=== PATIENT | male | born 1970 | race Asian ===

== ENCOUNTER 2018-07-09 19:06 | Inpatient (IN) | payer MEDICAID ==
[~2018-07-09] VITALS: Ht 165.1 cm; Wt 76.0 kg
[~2018-07-09 19:06] MED LIST: HYDR-3498 PO; IBUP-1542 PO; ZOF8 PO
[2018-07-09] MEDS ORDERED: SOD CHLORIDE 0.9% 1,000 ML IV STA (19:37)
--- NOTE | 2018-07-09 20:02 | ERD ---
ER Documentation Chief Complaint Chief Complaint bib ra from home for sudden aloc while eating dinner, no trauma HPI 47-year-old man had an episode of difficulty breathing, became diaphoretic, and then syncopized while at the dinner table prior to eating. After he was revived he was confused diaphoretic and hypotensive and was transported here by EMS. He had no vomiting or diarrhea, no complaints of chest pain or shortness of breath. ROS All systems reviewed and are negative except as per history of present illness. Medications Home Meds Reported Medications Atorvastatin Calcium (Atorvastatin Calcium) 10 Mg Tablet, 10 MG PO QHS, #30 TAB 07/09/18 Amlodipine Besylate* (Norvasc*) 5 Mg Tablet, 5 MG PO DAILY, TAB 07/09/18 Losartan-Hydrochlorothiazide (Losartan-HCTZ) Unknown Strength Tab, PO DAILY, TAB 07/09/18 Discontinued Scripts Ondansetron Hcl* (Zofran* ODT) 8 mg -ODT Tab.disper, 8 MG PO Q6 PRN for NAUSEA AND/OR VOMITING, #8 TAB Prov:BARRY ORTIZ MD 10/25/15 Ibuprofen* (Motrin*) 600 Mg Tab, 600 MG PO Q6, #20 TAB Prov:BARRY ORTIZ MD 10/25/15 Hydrocodone Bit-Acetaminophen* (As[place]*) 5-325 Mg Tab, 1 TAB PO Q6 PRN for PAIN, #15 TAB Prov:BARRY ORTIZ MD 10/25/15 Allergies Allergies: Coded Allergies: No Known Allergy (Unverified , 07/09/18) PMhx/Soc Hypertension, visually impaired History of Surgery: Yes (BRAIN) Anesthesia Reaction: No Hx Neurological Disorder: No Hx Respiratory Disorders: No Hx Cardiac Disorders: No (HTN; CHOLESTEROL) Hx Psychiatric Problems: No Hx Miscellaneous Medical Probl: Yes (AUTISM) Hx Alcohol Use: No Hx Substance Use: No Hx Tobacco Use: No Smoking Status: Never smoker FmHx Family History: No diabetes Physical Exam Vitals Vital Signs Date Temp Pulse Resp B/P (MAP) Pulse Ox O2 O2 Flow FiO2 Time Delivery Rate 07/09/18 98.7 63 19 111/75 100 19:11 (87) Physical Exam GENERAL: Well-developed, well-nourished, well-hydrated, in no apparent distress, looks nontoxic in appearance HEENT: Moist mucous membranes, pink conjunctiva, no cervical spine tenderness or step-off deformities, no goiter, no jaundice or icterus, extraocular movements intact without pain. No submandibular induration, and no pharyngeal erythema NEURO: Alert and oriented 3, cranial nerves II through XII intact bilaterally, pupils equal round reactive to light, no focal deficits or facial asymmetry, sensation intact distally Strength 5/5 in upper and lower extremities bilaterally CARDIAC: Regular rate and rhythm, no murmurs rubs or gallops LUNGS: Clear bilaterally no wheezing crackles or stridor ABDOMEN: Soft nontender, no guarding, no rigidity, no rebound, no psoas sign no obturator sign. Normoactive bowel sounds SKIN: Warm and dry to touch, no abrasions, contusions, or hematomas, no lacerations, no ecchymosis, no target lesions, and without ulcers EXTREMITIES: No clubbing cyanosis or edema, calves are bilaterally symmetrical, no Homans sign, no popliteal cord sign. Distal pulses equal and bilateral PSYCH: Normal affect without agitation or irritability Result Diagram: 07/09/18191307/09/181913 Results 24 hrs Laboratory Tests Test 07/09/18 19:14 White Blood Count 14.4 10^3/ul Red Blood Count 5.25 10^6/ul Hemoglobin 15.9 g/dl Hematocrit 46.9 % Mean Corpuscular Volume 89.3 fl Mean Corpuscular Hemoglobin 30.3 pg Mean Corpuscular Hemoglobin Concent 33.9 g/dl Red Cell Distribution Width 11.9 % Platelet Count 318 10^3/UL Mean Platelet Volume 9.3 fl Immature Granulocytes % 0.600 % Neutrophils % 50.1 % Lymphocytes % 39.3 % Monocytes % 7.0 % Eosinophils % 2.5 % Basophils % 0.5 % Nucleated Red Blood Cells % 0.0 /100WBC Immature Granulocytes # 0.080 10^3/ul Neutrophils # 7.2 10^3/ul Lymphocytes # 5.6 10^3/ul Monocytes # 1.0 10^3/ul Eosinophils # 0.4 10^3/ul Basophils # 0.1 10^3/ul Nucleated Red Blood Cells # 0.0 10^3/ul Sodium Level 141 mmol/L Potassium Level 3.0 mmol/L Chloride Level 98 mmol/L Carbon Dioxide Level 29 mmol/L Anion Gap 14 Blood Urea Nitrogen 19 mg/dl Creatinine 0.94 mg/dl Est Glomerular Filtrat Rate mL/min > 60 mL/min Glucose Level 169 mg/dl Calcium Level 9.0 mg/dl Total Bilirubin 1.1 mg/dl Direct Bilirubin 0.00 mg/dl Indirect Bilirubin 1.1 mg/dl Aspartate Amino Transf (AST/SGOT) 21 IU/L Alanine Aminotransferase (ALT/SGPT) 32 IU/L Alkaline Phosphatase 61 IU/L Troponin I < 0.012 ng/ml Total Protein 7.3 g/dl Albumin 4.3 g/dl Globulin 3.00 g/dl Albumin/Globulin Ratio 1.43 Lipase 40 U/L Current Medications Medications Dose Sig/Jc Start Time Status Last (Trade) Ordered Route PRN Stop Time Admin Dose Reason Admin Sodium 1,000 ml @ Q1H STAT 07/09/18 DC 07/09/18 Chloride 1,000 mls/hr IV 19:37 07/09/18 19:57 20:36 Procedures/MDM IV line was established patient was placed on campus monitor rhythm strip revealed a sinus rhythm at about 70 bpm with upright P and T waves. Patient was afebrile EKG performed, read by me: Normal sinus rhythm at 70 bpm, normal axis, right ventricular conduction delay QRS duration 108 ms, no concerning ST elevations or depressions noted Chest X-ray 1V Interpreted by me: Soft Tissue: Linear foreign body in the right mid chest overlying the right lateral trachea Bones: No acute abnormalities Mediastinum/Cardiac Silhouette/Lungs: No acute abnormalities CT scan of the neck was performed, no acute ingested foreign body or airway foreign body noted. Please refer to radiologist dictation for full report. CBC and electrolytes were normal, liver function tests are normal, troponin negative, urinalysis positive for RBCs. Patient has no complaints of pain. I administered 1 L normal saline IV and Zofran 4 mg IV Patient admitted for continued medical management and syncope workup Departure Diagnosis: Primary Impression: Syncope Syncope type: unspecified Qualified Codes: R55 - Syncope and collapse Condition: SKYLAR Ahmadi MD Jul 09, 2018 20:02
--- NOTE | 2018-07-09 22:13 | HP ---
Date/Time of Note Date/Time of Note DATE: 07/09/18 TIME: 22:13 Assessment/Plan VTE Prophylaxis SCD applied (from Nsg): Yes Pharmacological prophylaxis: NA/contraindicated Pharm contraindication: low risk/ambulating Lines/Catheters IV Catheter Type (from Nrsg): Saline Lock Assessment/Plan Hospital Course This is a 47-year-old male being admitted to the telemetry floor for observation for: #1 syncope: Etiology unclear, neurocardiogenic versus cardiogenic versus vasovagal. Based on the history seems like a possible vasovagal/orthostatic event. Will check orthostatics, echocardiogram, carotid Dopplers monitor electrolytes we will replete potassium. Monitor on telemetry. Will consult cardiology/Neurology. EKG:Normal sinus rhythm at 70 bpm, normal axis, right ventricular conduction delay QRS duration 108 ms, no concerning ST elevations or depressions noted #2 hypertension: We will hold patient's home blood pressure medication at the current time, PRN hydralazine for systolic greater than 170 #3 hyperlipidemia: Check lipid panel, resume statin #4: metallic foreign body. Patient has a KNOWN foreign body on imaging studies. Family chose not to have it removed as they were told it was not necessary to in the past. Of note, this likely will prevent MRI #5 history of brain tumors: Unclear etiology of the brain tumors however patient apparently has had 5 brain surgeries in the past. #6 autism: Continue supportive care #7 leukocytosis: Likely reactive, no source of infection noted at the current time. Will obtain a urinalysis. #8 DVT GI prophylaxis: SCDs, no GI prophylaxis indicated The treatment strategy will be implemented as per the clinical course. Result Diagram: 07/09/18191307/09/181913 Results 24hrs Laboratory Tests Test 07/09/18 19:14 White Blood Count 14.4 H Red Blood Count 5.25 Hemoglobin 15.9 Hematocrit 46.9 Mean Corpuscular Volume 89.3 Mean Corpuscular Hemoglobin 30.3 Mean Corpuscular Hemoglobin Concent 33.9 Red Cell Distribution Width 11.9 Platelet Count 318 Mean Platelet Volume 9.3 # Immature Granulocytes % 0.600 H Neutrophils % 50.1 Lymphocytes % 39.3 Monocytes % 7.0 Eosinophils % 2.5 Basophils % 0.5 Nucleated Red Blood Cells % 0.0 Immature Granulocytes # 0.080 H Neutrophils # 7.2 Lymphocytes # 5.6 H Monocytes # 1.0 H Eosinophils # 0.4 Basophils # 0.1 Nucleated Red Blood Cells # 0.0 Sodium Level 141 Potassium Level 3.0 L Chloride Level 98 Carbon Dioxide Level 29 Anion Gap 14 H Blood Urea Nitrogen 19 Creatinine 0.94 Est Glomerular Filtrat Rate mL/min > 60 Glucose Level 169 Calcium Level 9.0 Total Bilirubin 1.1 Direct Bilirubin 0.00 Indirect Bilirubin 1.1 Aspartate Amino Transf (AST/SGOT) 21 Alanine Aminotransferase (ALT/SGPT) 32 Alkaline Phosphatase 61 Troponin I < 0.012 Total Protein 7.3 Albumin 4.3 Globulin 3.00 Albumin/Globulin Ratio 1.43 Lipase 40 HPI/ROS Admit Date/Time Admit Date/Time Hx of Present Illness Chief complaint: Syncopal episode while sitting This is a 47-year-old autistic male who had a syncopal episode at home. Family member at the bedside provided the history. She states that the patient was sitting at dinner and all of a sudden he started sweating and turned pale and his face turned blank and in a slightly slumped forward. After he was revived he became confused and he was diaphoretic and he was hypotensive and was transported via EMS to [facility]. Patient denied any nausea vomiting or diarrhea there is no chest pain or shortness of Allergies: NKDA Medications: See AMANDA PINEDA Subjective hx not possible: other (Limited secondary to patient's clinical, mental status) PMH/Family/Social Past Medical History Hypertension, hyperlipidemia, history of brain tumor Coded Allergies: No Known Allergy (Unverified , 07/09/18) Past Surgical History Multiple brain surgeries Family History Significant Family History: no pertinent family hx Social History Alcohol Use: none Smoking Status: Never smoker Drug Use: none Exam/Review of Systems Vital Signs Vitals Vital Signs Date Temp Pulse Resp B/P (MAP) Pulse Ox O2 O2 Flow FiO2 Time Delivery Rate 07/09/18 98.7 63 19 111/75 100 19:11 (87) Exam Exam General: Patient is currently lying in bed he does not appear to be in acute distress, patient does have a history of autism he is limited in providing h istory HEENT: Atraumatic, normocephalic. The pupils are equal, round and reactive. Extraocular motor are intact Neck: Supple with full range of motion. No rigidity or meningismus Chest: Nontender Lungs: Clear to auscultation bilaterally no crackles rales or wheezing Heart: Normal S1-S2, Regular rhythm and rate. No murmur, S3, or S4 Abdomen: Soft , nontender, nondistended , bowel sounds are present. No guarding no rebound tenderness , No masses or organomegaly. No costovertebral temporal angle mass Extremities: Normal to inspection, no edema no cyanosis Neurologic: Awake and alert, neuro test limited secondary to patient history of autism Additional Comments EKG:Normal sinus rhythm at 70 bpm, normal axis, right ventricular conduction delay QRS duration 108 ms, no concerning ST elevations or depressions noted PROCEDURE: CT soft tissue neck without contrast CLINICAL INDICATION: Possible foreign body TECHNIQUE: The study was performed utilizing a multidetector CT scanner. Direct thin section helically acquired axial sections were obtained through the neck in the axial plane. Coronal and sagittal reformations were obtained. The images were reviewed on a PACS workstation. The total CTDIvol is 10.5 mGy and the DLP is 284 mGy-cm. 3-D reconstructions were not performed on the radiologist's workstation and evaluated for fractures. DICOM images are available. One or more of the following dose reduction techniques were utilized: 1.) Automated exposure control 2.) Adjustment of the mA +/- kV according to patient's size 3.) Use of iterative reconstruction technique. COMPARISON: Cervical spine CT dated 07/15/2015 FINDINGS: The nasopharynx, oropharynx, hypopharynx, and larynx are all normal in appearance. The thyroid gland is normal in size with no focal mass lesions seen. The submandibular and parotid glands are unremarkable and normal in appearance. No pathologically enlarged lymph nodes are detected. Overall, fat planes in the neck are well maintained. There is a metallic needle shaped foreign body in the subcutaneous soft tissues in the sternal notch just superomedial to the medial and of the right clavicle. This was present on the prior examination. No other foreign bodies are evident. Arterial and venous structures in the neck appear grossly unremarkable. No osteolytic or blastic lesion is evident. IMPRESSION: 1. Stable metallic foreign body at the sternal notch unchanged since 07/15/2015. 2. No other evidence of foreign body in the vicinity of the trachea or esophagus. 3. Otherwise unremarkable unenhanced CT scan of the neck. RPTAT:AAJJ Samina Chung, Physician Date Time Electronically viewed and signed by Samina Chung Physician on 07/09/2018 22:33 GW/ CC: SKYLAR EID MD [id number] PROCEDURE: XR Chest. CLINICAL INDICATION: foreign body TECHNIQUE: Single frontal view of the chest was obtained COMPARISON: None FINDINGS: See impression IMPRESSION: 2 cm linear hyperdense object is seen projecting just to the right of midline at the C1-C2 vertebral body level. It is unclear whether this is within the trachea or esophagus. Recommend obtaining a true lateral view chest radiograph for localization. Lungs are otherwise clear. Heart and mediastinum are within normal limits. ... No acute musculoskeletal abnormalities. RPTAT: AA Radha Senior, Physician Date Time Electronically viewed and signed by Radha Senior Physician on 07/09/2018 21:21 RB/ CC: SKYLAR EID MD [id number] JOHN ROQUE Jul 09, 2018 22:13
[2018-07-09] MEDS ORDERED: NACL 0.9% 3 ML SYG IV SCH (22:30)
[2018-07-09] MEDS ORDERED: ONDANSETRON 4 MG INJ IV PRN (22:30)
[2018-07-09] MEDS ORDERED: morphine 2 MG INJ IV PRN (22:30)
[2018-07-09] MEDS: SOD CHLORIDE 0.9% 1,000 ML IV SCH (22:35)
[2018-07-09 23:10] VITALS: BP 127/79; PULSE 91; RESP 20
[2018-07-09 23:25] VITALS: Ht 165.1 cm; Wt 76.0 kg
[2018-07-09] MEDS ORDERED: ATOR10TA65 PO (23:25)
[2018-07-09] MEDS ORDERED: LOSA1TAB22 PO (23:25)
[2018-07-09] MEDS ORDERED: AMLO5TAB4 PO (23:25)
[2018-07-10] VITALS (12 sets, daily range): BP systolic 116–139; BP diastolic 81–100; PULSE 85–104; RESP 16–19
[2018-07-10] MEDS ORDERED: hydrALAzine 20 MG INJ IV PRN
[2018-07-10] MEDS ORDERED: POTASSIUM CHLORIDE (SR) 20 MEQ TAB PO STA (00:24)
[2018-07-10] MEDS ORDERED: MAGNESIUM OXIDE 400 MG TAB PO ONE (00:30)
[2018-07-10] MEDS: PANTOPRAZOLE 40 MG INJ IV SCH (05:33)
[2018-07-10] MEDS: SOD CHLORIDE 0.9% 1,000 ML IV SCH (09:22)
--- NOTE | 2018-07-10 10:47 | CONS ---
Assessment/Plan Assessment/Plan Hospital Course 47 M c/ remote brain surgery NOS, and autism...who presents for evaluation following transient LOC. The clinical picture could be consistent w/ syncope. Seizure is less likely. Stroke is less likely.. Orthostatics are negative MRI brain is contraindicated due to the presence of a metallic foreign body.. P: Head CT for further characterization EEG to evaluate for epileptiform activity. Await UA; add UDS Other medical workup and management per primary Will follow clinically Consultation Date/Type/Reason Admit Date/Time Type of Consult Neurology Reason for Consultation LOC Requesting Provider: JOHN ROQUE Date/Time of Note DATE: 07/10/18 TIME: 10:40 Hx of Present Illness Patient is himself unable to contribute a Hx 2/2 reported autism.. It is elsewhere noted: This is a 47-year-old autistic male who had a syncopal episode at home. Family member at the bedside provided the history. She states that the patient was sitting at dinner and all of a sudden he started sweating and turned pale and his face turned blank and in a slightly slumped forward. After he was revived he became confused and he was diaphoretic and he was hypotensive and was transported via EMS to [facility]. Patient denied any nausea vomiting or diarrhea there is no chest pain or shortness of Allergies: NKDA limited by encephalopathy Exam/Review of Systems Exam Vitals Vital Signs Date Temp Pulse Resp B/P (MAP) Pulse Ox O2 O2 Flow FiO2 Time Delivery Rate 07/10/18 92 08:03 07/10/18 98.7 16 138/86 99 Room Air 07:31 (103) Intake and Output 07/09/18 07/09/18 07/10/18 1515:00 23:00 07:00 IntakeIntake Total 300 ml OutputOutput Total 200 ml BalanceBalance 100 ml Exam PE: Gen Appearance: No Apparent Distress HEENT: Normocephalic Cardiovascular: Regular rate Abdomen: Soft Extremities: Dry NE: The patient was alert able to say his name. Language was fluent. Fund of knowledge was difficult to assess. He was blind.. Funduscopic examination was limited. Extra-ocular movements were full. Ptosis was absent. There was no nystagmus. Facial sensation was normal. Face was grossly symmetric with normal strength. Hearing was intact. Palate movements were normal. Neck strength was normal. There was normal tongue bulk and speed of movement. Tone was normal. Muscle bulk was normal. I did not see fasciculations. Arms and legs were grossly symmetric.. Vibration sensation was normal. Temperature and pinprick sensation was normal. Rapid alternating movements were normal. There was no dysmetria. There was no intention tremor. Gait was deferred due to bedrest. Arm and leg reflexes were symmetric. Lucero's sign was absent. Plantar responses were flexor. Results Result Diagram: 07/10/18 0725 07/10/18 0725 Results 24hrs Laboratory Tests Test 07/09/18 19:14 07/10/18 07:25 White Blood Count 14.4 H 9.7 # Red Blood Count 5.25 5.01 Hemoglobin 15.9 15.2 Hematocrit 46.9 46.0 Mean Corpuscular Volume 89.3 91.8 Mean Corpuscular Hemoglobin 30.3 30.3 Mean Corpuscular Hemoglobin Concent 33.9 33.0 Red Cell Distribution Width 11.9 12.0 Platelet Count 318 308 Mean Platelet Volume 9.3 # 9.6 Immature Granulocytes % 0.600 H 0.300 Neutrophils % 50.1 60.8 Lymphocytes % 39.3 29.9 Monocytes % 7.0 7.2 Eosinophils % 2.5 1.5 Basophils % 0.5 0.3 Nucleated Red Blood Cells % 0.0 0.0 Immature Granulocytes # 0.080 H 0.030 Neutrophils # 7.2 5.9 Lymphocytes # 5.6 H 2.9 Monocytes # 1.0 H 0.7 Eosinophils # 0.4 0.2 Basophils # 0.1 0.0 Nucleated Red Blood Cells # 0.0 0.0 Sodium Level 141 147 H Potassium Level 3.0 L 3.7 Chloride Level 98 106 Carbon Dioxide Level 29 29 Anion Gap 14 H 12 Blood Urea Nitrogen 19 15 Creatinine 0.94 0.78 Est Glomerular Filtrat Rate mL/min > 60 > 60 Glucose Level 169 90 # Calcium Level 9.0 9.3 Total Bilirubin 1.1 1.0 Direct Bilirubin 0.00 0.00 Indirect Bilirubin 1.1 1.0 Aspartate Amino Transf (AST/SGOT) 21 26 Alanine Aminotransferase (ALT/SGPT) 32 24 Alkaline Phosphatase 61 55 Troponin I < 0.012 Total Protein 7.3 7.5 Albumin 4.3 4.3 Globulin 3.00 3.20 Albumin/Globulin Ratio 1.43 1.34 Lipase 40 Hemoglobin A1c 5.6 Magnesium Level 2.2 Triglycerides Level 135 Cholesterol Level 132 LDL Cholesterol, Calculated 75 HDL Cholesterol 30 Cholesterol/HDL Ratio 4.4 Thyroid Stimulating Hormone (TSH) 2.670 Medications Medication Current Medications Sodium Chloride 1,000 ml @ 100 mls/hr Q10H IV Last administered on 07/10/18at 09:22; Admin Dose 100 MLS/HR; Start 07/09/18 at 22:10; Stop 07/10/18 at 22:09 IV Flush (NS 3 ml) 3 ml PER PROTOCOL IV ; Start 07/09/18 at 22:30 Ondansetron HCl (Zofran Inj) 4 mg Q6H PRN IV NAUSEA/VOMITING; Start 07/09/18 at 22:30 Morphine Sulfate (morphine) 2 mg Q4H PRN IV .PAIN 7-10; Start 07/09/18 at 22:30 Pantoprazole (Protonix Iv) 40 mg DAILY@06 IV Last administered on 07/10/18at 05:33; Admin Dose 40 MG; Start 07/10/18 at 06:00 Hydralazine HCl (Apresoline) 10 mg Q4H PRN IV ELEVATED BLOOD PRESSURE; Start 07/10/18 at 00:00 Amlodipine Besylate (Norvasc) 5 mg DAILY PO ; Start 07/10/18 at 10:00 Atorvastatin Calcium (Lipitor) 10 mg QHS PO ; Start 07/10/18 at 21:00 Past Medical History reviewed Home Meds Reported Medications Atorvastatin Calcium (Atorvastatin Calcium) 10 Mg Tablet, 10 MG PO QHS, #30 TAB 07/09/18 Amlodipine Besylate* (Norvasc*) 5 Mg Tablet, 5 MG PO DAILY, TAB 07/09/18 Losartan-Hydrochlorothiazide (Losartan-HCTZ) Unknown Strength Tab, PO DAILY, TAB 07/09/18 Discontinued Scripts Ondansetron Hcl* (Zofran* ODT) 8 mg -ODT Tab.disper, 8 MG PO Q6 PRN for NAUSEA AND/OR VOMITING, #8 TAB Prov:BARRY ORTIZ MD 10/25/15 Ibuprofen* (Motrin*) 600 Mg Tab, 600 MG PO Q6, #20 TAB Prov:BARRY ORTIZ MD 10/25/15 Hydrocodone Bit-Acetaminophen* (Ponce*) 5-325 Mg Tab, 1 TAB PO Q6 PRN for PAIN, #15 TAB Prov:BARRY ORTIZ MD 10/25/15 Medications Current Medications Sodium Chloride 1,000 ml @ 100 mls/hr Q10H IV Last administered on 07/10/18at 09:22; Admin Dose 100 MLS/HR; Start 07/09/18 at 22:10; Stop 07/10/18 at 22:09 IV Flush (NS 3 ml) 3 ml PER PROTOCOL IV ; Start 07/09/18 at 22:30 Ondansetron HCl (Zofran Inj) 4 mg Q6H PRN IV NAUSEA/VOMITING; Start 07/09/18 at 22:30 Morphine Sulfate (morphine) 2 mg Q4H PRN IV .PAIN 7-10; Start 07/09/18 at 22:30 Pantoprazole (Protonix Iv) 40 mg DAILY@06 IV Last administered on 07/10/18at 05:33; Admin Dose 40 MG; Start 07/10/18 at 06:00 Hydralazine HCl (Apresoline) 10 mg Q4H PRN IV ELEVATED BLOOD PRESSURE; Start 07/10/18 at 00:00 Amlodipine Besylate (Norvasc) 5 mg DAILY PO ; Start 07/10/18 at 10:00 Atorvastatin Calcium (Lipitor) 10 mg QHS PO ; Start 07/10/18 at 21:00 Allergies: Coded Allergies: No Known Allergy (Unverified , 07/09/18) Past Surgical History reviewed Past Surgical Hx: other (brain surgery 30 years ago) Social History Alcohol Use: none Smoking Status: Never smoker Drug Use: none DAISY ALBERTS Jul 10, 2018 10:47
[2018-07-10] MEDS: AMLODIPINE 5 MG TAB PO SCH (11:41)
--- NOTE | 2018-07-10 12:38 | RADRPT ---
Echocardiogram Report Patient Name: MARIA D PARRAatient ID: [id number] : 1970 (47y 7m)Study Date: 07/10/2018 8:23:03 AM Gender: MAccession #: [id number] Tech: SIHRA Banks RDCS Location: [facility] Ref.Physician: JOHN ROQUE Height(Cm): BSA: Weight(Kg): Quality: AdequateAccount #: Procedures: Echocardiographic Report: Transthoracic echocardiogram with complete 2D, M-Mode, and doppler examination. Indications: Syncope. Measurements: 2D/M Mode Doppler Measurement Value Normal Range Measurement Value Normal Range LVIDd 2D 4.5 [ 4.2 - 5.8 ] cm AV Peak Kartik 1.2 [ 100.0 - 170.0 ] cm/se c LVIDs 2D 2.9 [ 2.5 - 4.0 ] cm AV Peak PG 6.0 [ 2.0 - 9.0 ] mmHg LVPWd 2D 0.9 [ 0.6 - 1.0 ] cm LVOT Peak Kartik 0.9 [ 70.0 - 110.0 ] cm/sec IVSd 2D 0.6 [ 0.6 - 1.0 ] cm LVOT Peak PG 3.0 [ 2.0 - 6.0 ] mmHg AoR Diam 2D 2.3 [ 2.6 - 3.4 ] cm MV E Peak Kartik 1.0 [ 60.0 - 130.0 ] cm/sec EDV 2D 92.4 [ 62.0 - 150.0 ] ml MV A Peak Kartik 0.3 [ 100.0 - 120.0 ] cm/se c ESV 2D 31.9 [ 21.0 - 61.0 ] ml MV E/A 3.0 [ 0.8 - 1.5 ] ratio EF 2D 65.5 [ 52.0 - 72.0 ] percent MV PHT 61.0 [ 20.0 - 100.0 ] msec LA Dimen 2D 2.6 [ 3.0 - 4.0 ] cm MV Decel Time 208 [ 104 - 258 ] msec MV Decel Erath 5 Lat E` Kartik 0.1 [ 10.0 - 15.0 ] cm/sec Lateral E/E` 9.5 [ 1.0 - 2.0 ] ratio Med E` Kartik 0.1 cm/sec MV E/A 3.0 [ 0.8 - 1.5 ] ratio MVA PHT 3.6 [ 2.0 - 4.0 ] cm2 Findings: Left Ventricle: Normal left ventricular systolic function. Normal left ventricular cavity size. Normal left ventricular wall thickness. Ejection fraction is visually estimated at 60-65 %. Tissue Doppler/Mitral Doppler indices are within normal limits. Right Ventricle: Normal right ventricular size. Normal right ventricular systolic function. Left Atrium: The left atrium is normal in size. Right Atrium: The right atrium is normal in size. Atrial Septum: Normal atrial septum. Ventricular septum: Normal/intact ventricular septum. Mitral Valve: Normal appearance of the mitral valve. Normal appearance and function of the mitral valve with trace physiologic regurgitation. Aortic Valve: Normal appearance of the aortic valve. No significant aortic stenosis or insufficiency. Tricuspid Valve: Normal appearance of the tricuspid valve. Unable to obtain RVSP due to minimal presence of tricuspid regurgitation. No evidence of tricuspid regurgitation. Pulmonic Valve: Normal pulmonic valve appearance. No evidence of pulmonic regurgitation. Pericardium: Normal pericardium with no significant pericardial effusion. Aorta: Normal aortic root. IVC: The IVC is not well visualized. Conclusions: Normal left ventricular systolic function. Normal left ventricular cavity size. Normal left ventricular wall thickness. Ejection fraction is visually estimated at 60-65 %. Tissue Doppler/Mitral Doppler indices are within normal limits. No significant valvular stenosis or regurgitation seen. Unable to obtain RVSP due to minimal presence of tricuspid regurgitation. The IVC is not well visualized. Electronically Signed By: Akin Sky 2018-07-10 12:36:59 PDT
--- NOTE | 2018-07-10 16:17 | PN ---
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 # syncope: - Was sitting at dinner table before eating, developed sweating and turned pale and his face turned blank and in a slightly slumped forward. Confused and diaphoretic afterwards - CT head interesting, consistent with congenital disability and old stroke but no acute changes. - Neuro exam nonfocal. Would not pursue MRI; and it is contraindicated anyway with embedded needle in neck. - Will get EEG to rule out seizure. Appreciate Dr. Canales's help. - Continue 24 hours telemetry monitoring. # hypertension: - Cont home lisinopril, HCTZ, amlodipine. # hyperlipidemia: - resume statin #Autism - This is according to mother; possible that patient instead has a congenital neurologic condition. # leukocytosis: Likely reactive, no source of infection noted at the current time. Will obtain a urinalysis. # DVT GI prophylaxis: SCDs, no GI prophylaxis indicated Result Diagram: 07/10/18 0725 07/10/18 0725 Subjective 24 Hr Interval Summary Free Text/Dictation No acute overnight events. Patient currently feeling well, although poor appetite. Patient feeling well. Mother at bedside helped translate; patient speaks Tajik. Exam/Review of Systems Exam Vitals Vital Signs Date Temp Pulse Resp B/P (MAP) Pulse Ox O2 O2 Flow FiO2 Time Delivery Rate 07/10/18 98.7 96 16 134/85 100 Room Air 15:31 (101) Intake and Output 07/09/18 07/09/18 07/10/18 1515:00 23:00 07:00 IntakeIntake Total 300 ml OutputOutput Total 200 ml BalanceBalance 100 ml Exam General: Patient is awake, alert, lying in bed answering questions appropriately. Eyes: Nonreactive pupils. Patient is blind. HEENT: Atraumatic, normocephalic. Extraocular motor are intact Neck: Supple with full range of motion. No rigidity or meningismus Chest: Nontender Lungs: Clear to auscultation bilaterally no crackles rales or wheezing Heart: Normal S1-S2, Regular rhythm and rate. No murmur, S3, or S4 Abdomen: Soft , nontender, nondistended , bowel sounds are present. No guarding Extremities: Normal to inspection, no edema no cyanosis NEURO CN: Blind in both eyes. Hearing equal to finger rub bilaterally. No facial droop. Sensation equal bilaterally. No hoarseness, tongue midline, shoulder shrug equal and strong bilaterally. Strength: 5/5 strength both upper and lower extremities in all muscle groups Sensation: Intact to light touch bilaterally throughout. Gait: Able to stand and walk independently, hesitant shuffling gait due to blindness. Results Results 24hrs Laboratory Tests Test 07/09/18 19:14 07/10/18 07:25 07/10/18 10:58 07/10/18 11:15 White Blood Count 14.4 H 9.7 # Red Blood Count 5.25 5.01 Hemoglobin 15.9 15.2 Hematocrit 46.9 46.0 Mean Corpuscular Volume 89.3 91.8 Mean Corpuscular 30.3 30.3 Hemoglobin Mean Corpuscular 33.9 33.0 Hemoglobin Concent Red Cell Distribution 11.9 12.0 Width Platelet Count 318 308 Mean Platelet Volume 9.3 # 9.6 Immature Granulocytes % 0.600 H 0.300 Neutrophils % 50.1 60.8 Lymphocytes % 39.3 29.9 Monocytes % 7.0 7.2 Eosinophils % 2.5 1.5 Basophils % 0.5 0.3 Nucleated Red Blood 0.0 0.0 Cells % Immature Granulocytes # 0.080 H 0.030 Neutrophils # 7.2 5.9 Lymphocytes # 5.6 H 2.9 Monocytes # 1.0 H 0.7 Eosinophils # 0.4 0.2 Basophils # 0.1 0.0 Nucleated Red Blood 0.0 0.0 Cells # Sodium Level 141 147 H Potassium Level 3.0 L 3.7 Chloride Level 98 106 Carbon Dioxide Level 29 29 Anion Gap 14 H 12 Blood Urea Nitrogen 19 15 Creatinine 0.94 0.78 Est Glomerular Filtrat > 60 > 60 Rate mL/min Glucose Level 169 90 # Calcium Level 9.0 9.3 Total Bilirubin 1.1 1.0 Direct Bilirubin 0.00 0.00 Indirect Bilirubin 1.1 1.0 Aspartate Amino 21 26 Transf (AST/SGOT) Alanine 32 24 Aminotransferase (ALT/SG PT) Alkaline Phosphatase 61 55 Troponin I < 0.012 < 0.012 Total Protein 7.3 7.5 Albumin 4.3 4.3 Globulin 3.00 3.20 Albumin/Globulin Ratio 1.43 1.34 Lipase 40 Hemoglobin A1c 5.6 Magnesium Level 2.2 Triglycerides Level 135 Cholesterol Level 132 LDL Cholesterol, 75 Calculated HDL Cholesterol 30 Cholesterol/HDL Ratio 4.4 Thyroid Stimulating 2.670 Hormone (TSH) Creatine Kinase 48 Creatine Kinase Index 0.5 Creatinine Kinase MB < 0.22 (Mass) Urine Color YELLOW Urine Clarity CLEAR Urine pH 7.0 Urine Specific [place] 1.016 Urine Ketones NEGATIVE Urine Nitrite NEGATIVE Urine Bilirubin NEGATIVE Urine Urobilinogen NEGATIVE Urine Leukocyte Esterase NEGATIVE Urine Hemoglobin NEGATIVE Urine Glucose NEGATIVE Urine Total Protein NEGATIVE Urine Opiates Screen Negative Urine Barbiturates Negative Urine Amphetamines Negative Screen Urine Benzodiazepines Negative Screen Urine Cocaine Screen Negative Urine Cannabinoids Negative Medications Medication Current Medications Sodium Chloride 1,000 ml @ 100 mls/hr Q10H IV Last administered on 07/10/18at 09:22; Admin Dose 100 MLS/HR; Start 07/09/18 at 22:10; Stop 07/10/18 at 22:09 IV Flush (NS 3 ml) 3 ml PER PROTOCOL IV ; Start 07/09/18 at 22:30 Ondansetron HCl (Zofran Inj) 4 mg Q6H PRN IV NAUSEA/VOMITING; Start 07/09/18 at 22:30 Morphine Sulfate (morphine) 2 mg Q4H PRN IV .PAIN 7-10; Start 07/09/18 at 22:30 Pantoprazole (Protonix Iv) 40 mg DAILY@06 IV Last administered on 07/10/18at 0 5:33; Admin Dose 40 MG; Start 07/10/18 at 06:00 Hydralazine HCl (Apresoline) 10 mg Q4H PRN IV ELEVATED BLOOD PRESSURE; Start 07/10/18 at 00:00 Amlodipine Besylate (Norvasc) 5 mg DAILY PO Last administered on 07/10/18at 11:41; Admin Dose 5 MG; Start 07/10/18 at 10:00 Atorvastatin Calcium (Lipitor) 10 mg QHS PO ; Start 07/10/18 at 21:00 ISACC KRISHNAMURTHY MD Jul 10, 2018 16:13
--- NOTE | 2018-07-10 18:36 | CONS ---
Assessment/Plan Assessment/Plan Hospital Course (Demo Recall) Syncope: By history likely vasovagal episode. Probably contribution from HCTZ use/dehydration. Echo with normal EF and no arrhythmias on tele HTN -would d/c HCTZ indefinitely -continue amlodipine and losartan -ok for d.c from my perspective Consultation Date/Type/Reason Admit Date/Time Date of Consultation: Jul 10, 2018 Type of Consult Cardiology Reason for Consultation Syncope Requesting Provider: JOHN ROQUE Date/Time of Note DATE: 07/10/18 TIME: 18:28 Hx of Present Illness 47 yo M with developmental delay, HTN, blindness, who presented with syncope. Per family recollection, he was eating when he started to become less responsive and pale. He briefly lost consciousness and when he recovered he was diaphoretic. He was hypotensive but unclear how low. On admission his K was 3.0. He is on HCTZ. No arrhythmias on tele. No complaints at this time. No prior syncope or cardiac disease. limited, obtained from family Past Medical History per hPI Home Meds Reported Medications Atorvastatin Calcium (Atorvastatin Calcium) 10 Mg Tablet, 10 MG PO QHS, #30 TAB 07/09/18 Amlodipine Besylate* (Norvasc*) 5 Mg Tablet, 5 MG PO DAILY, TAB 07/09/18 Losartan-Hydrochlorothiazide (Losartan-HCTZ) Unknown Strength Tab, PO DAILY, TAB 07/09/18 Discontinued Scripts Ondansetron Hcl* (Zofran* ODT) 8 mg -ODT Tab.disper, 8 MG PO Q6 PRN for NAUSEA AND/OR VOMITING, #8 TAB Prov:BARRY ORTIZ MD 10/25/15 Ibuprofen* (Motrin*) 600 Mg Tab, 600 MG PO Q6, #20 TAB Prov:BARRY ORTIZ MD 10/25/15 Hydrocodone Bit-Acetaminophen* ([place]*) 5-325 Mg Tab, 1 TAB PO Q6 PRN for PAIN, #15 TAB Prov:BARRY ORTIZ MD 10/25/15 Medications Current Medications IV Flush (NS 3 ml) 3 ml PER PROTOCOL IV ; Start 07/09/18 at 22:30 Ondansetron HCl (Zofran Inj) 4 mg Q6H PRN IV NAUSEA/VOMITING; Start 07/09/18 at 22:30 Morphine Sulfate (morphine) 2 mg Q4H PRN IV .PAIN 7-10; Start 07/09/18 at 22:30 Pantoprazole (Protonix Iv) 40 mg DAILY@06 IV Last administered on 07/10/18at 05:33; Admin Dose 40 MG; Start 07/10/18 at 06:00 Hydralazine HCl (Apresoline) 10 mg Q4H PRN IV ELEVATED BLOOD PRESSURE; Start 07/10/18 at 00:00 Amlodipine Besylate (Norvasc) 5 mg DAILY PO Last administered on 07/10/18at 11:41; Admin Dose 5 MG; Start 07/10/18 at 10:00 Atorvastatin Calcium (Lipitor) 10 mg QHS PO ; Start 07/10/18 at 21:00 Losartan Potassium (Cozaar) 25 mg DAILY PO ; Start 07/11/18 at 09:00 Hydrochlorothiazide (Hydrochlorothiazide) 25 mg DAILY PO ; Start 07/11/18 at 09:00 Allergies: Coded Allergies: No Known Allergy (Unverified , 07/09/18) Past Surgical History Past Surgical Hx: other (brain surgery 30 years ago) Social History Alcohol Use: none Smoking Status: Never smoker Drug Use: none Exam/Review of Systems Vital Signs Vitals Vital Signs Date Temp Pulse Resp B/P (MAP) Pulse Ox O2 O2 Flow FiO2 Time Delivery Rate 07/10/18 94 16:06 07/10/18 98.7 16 134/85 100 Room Air 15:31 (101) Intake and Output 07/09/18 07/09/18 07/10/18 1414:59 22:59 06:59 IntakeIntake Total 300 ml OutputOutput Total 200 ml BalanceBalance 100 ml Exam Constitutional: alert Psych: no complaints, nl mood/affect Head: normocephalic, atraumatic Neck: supple; No jvd Respiratory: clear to auscultation; No crackles/rales Cardiovascular: regular rate and rhythm; No edema Gastrointestinal: soft, non-tender; No distended Neurological: nl mental status, nl speech Labs Result Diagram: 07/10/18 0725 07/10/18 0725 Results 24hrs Laboratory Tests Test 07/09/18 19:14 07/10/18 07:25 07/10/18 10:58 4/6/19 11:15 White Blood Count 14.4 H 9.7 # Red Blood Count 5.25 5.01 Hemoglobin 15.9 15.2 Hematocrit 46.9 46.0 Mean Corpuscular Volume 89.3 91.8 Mean Corpuscular 30.3 30.3 Hemoglobin Mean Corpuscular 33.9 33.0 Hemoglobin Concent Red Cell Distribution 11.9 12.0 Width Platelet Count 318 308 Mean Platelet Volume 9.3 # 9.6 Immature Granulocytes % 0.600 H 0.300 Neutrophils % 50.1 60.8 Lymphocytes % 39.3 29.9 Monocytes % 7.0 7.2 Eosinophils % 2.5 1.5 Basophils % 0.5 0.3 Nucleated Red Blood 0.0 0.0 Cells % Immature Granulocytes # 0.080 H 0.030 Neutrophils # 7.2 5.9 Lymphocytes # 5.6 H 2.9 Monocytes # 1.0 H 0.7 Eosinophils # 0.4 0.2 Basophils # 0.1 0.0 Nucleated Red Blood 0.0 0.0 Cells # Sodium Level 141 147 H Potassium Level 3.0 L 3.7 Chloride Level 98 106 Carbon Dioxide Level 29 29 Anion Gap 14 H 12 Blood Urea Nitrogen 19 15 Creatinine 0.94 0.78 Est Glomerular Filtrat > 60 > 60 Rate mL/min Glucose Level 169 90 # Calcium Level 9.0 9.3 Total Bilirubin 1.1 1.0 Direct Bilirubin 0.00 0.00 Indirect Bilirubin 1.1 1.0 Aspartate Amino 21 26 Transf (AST/SGOT) Alanine 32 24 Aminotransferase (ALT/SG PT) Alkaline Phosphatase 61 55 Troponin I < 0.012 < 0.012 Total Protein 7.3 7.5 Albumin 4.3 4.3 Globulin 3.00 3.20 Albumin/Globulin Ratio 1.43 1.34 Lipase 40 Hemoglobin A1c 5.6 Magnesium Level 2.2 Triglycerides Level 135 Cholesterol Level 132 LDL Cholesterol, 75 Calculated HDL Cholesterol 30 Cholesterol/HDL Ratio 4.4 Thyroid Stimulating 2.670 Hormone (TSH) Creatine Kinase 48 Creatine Kinase Index 0.5 Creatinine Kinase MB < 0.22 (Mass) Urine Color YELLOW Urine Clarity CLEAR Urine pH 7.0 Urine Specific [place] 1.016 Urine Ketones NEGATIVE Urine Nitrite NEGATIVE Urine Bilirubin NEGATIVE Urine Urobilinogen NEGATIVE Urine Leukocyte Esterase NEGATIVE Urine Hemoglobin NEGATIVE Urine Glucose NEGATIVE Urine Total Protein NEGATIVE Urine Opiates Screen Negative Urine Barbiturates Negative Urine Amphetamines Negative Screen Urine Benzodiazepines Negative Screen Urine Cocaine Screen Negative Urine Cannabinoids Negative Test 07/10/18 16:50 Creatine Kinase 55 Creatine Kinase Index 0.4 Creatinine Kinase MB < 0.22 (Mass) Troponin I < 0.012 Medications Medications Current Medications IV Flush (NS 3 ml) 3 ml PER PROTOCOL IV ; Start 07/09/18 at 22:30 Ondansetron HCl (Zofran Inj) 4 mg Q6H PRN IV NAUSEA/VOMITING; Start 07/09/18 at 22:30 Morphine Sulfate (morphine) 2 mg Q4H PRN IV .PAIN 7-10; Start 07/09/18 at 22:30 Pantoprazole (Protonix Iv) 40 mg DAILY@06 IV Last administered on 07/10/18at 05:33; Admin Dose 40 MG; Start 07/10/18 at 06:00 Hydralazine HCl (Apresoline) 10 mg Q4H PRN IV ELEVATED BLOOD PRESSURE; Start 07/10/18 at 00:00 Amlodipine Besylate (Norvasc) 5 mg DAILY PO Last administered on 07/10/18at 11:41; Admin Dose 5 MG; Start 07/10/18 at 10:00 Atorvastatin Calcium (Lipitor) 10 mg QHS PO ; Start 07/10/18 at 21:00 Losartan Potassium (Cozaar) 25 mg DAILY PO ; Start 07/11/18 at 09:00 Hydrochlorothiazide (Hydrochlorothiazide) 25 mg DAILY PO ; Start 07/11/18 at 09:00 DEVIN PASCAL Jul 10, 2018 18:36
[2018-07-10] MEDS ORDERED: ATORVASTATIN 10 MG TAB PO SCH (21:00)
[2018-07-11] VITALS: BP 121/78; PULSE 89; PULSE 93; RESP 20
[2018-07-11 04:00] VITALS: BP 127/81; PULSE 80; PULSE 81; RESP 18
[2018-07-11] MEDS: PANTOPRAZOLE 40 MG INJ IV SCH (06:11)
[2018-07-11 07:31] VITALS: BP 145/96; PULSE 83; RESP 18
[2018-07-11 08:00] VITALS: PULSE 86
[2018-07-11] MEDS: AMLODIPINE 5 MG TAB PO SCH (08:44)
--- NOTE | 2018-07-11 08:48 | EEG ---
EEG NOTE Report Details DATE OF TEST: 07/10/18 HISTORY: The patient is a 47-year-old M who presents with transient LOC. This EEG is requested to evaluate for an epileptic disorder. SEDATION: None. CONDITIONS OF RECORDING: This EEG was recorded digitally on the [email or web address] machine, using the International 10-20 System of electrodes plus anterior temporals and Nz. STATES SAMPLED: Wakefulness and drowsiness. FINDINGS: During wakefulness, there is a 8.5 Hz posterior dominant rhythm, which attenuates normally with eye opening. There is a normal [id number] frequency-amplitude gradient. The remainder of the awake background is normal. Photic stimulation does not elicit any definite driving responses or epileptifor m discharges. Hyperventilation was not performed. The patient became drowsy but did not pass into sleep. No asymmetries, focal abnormalities or epileptiform discharges were seen. IMPRESSION: Normal electroencephalogram during wakefulness and drowsiness. DAISY ALBERTS Jul 11, 2018 08:48
[2018-07-11] MEDS ORDERED: LOSARTAN 25 MG TAB PO SCH (09:00)
[2018-07-11] MEDS ORDERED: HYDROCHLOROTHIAZIDE 25 MG TAB PO SCH (09:00)
--- NOTE | 2018-07-11 09:59 | CONS ---
Assessment/Plan Assessment/Plan Hospital Course 47 M c/ remote brain surgery NOS, and autism...who presents for evaluation following transient LOC. The clinical picture could be consistent w/ syncope. Seizure is additionally considered.. Stroke is less likely.. CTH is notable for cortical encephalomalacia w/ calcifications of uncertain significance. EEG was normal. Orthostatics are negative MRI brain is contraindicated due to the presence of a metallic foreign body.. P: Start Keppra 250mg bid for now, with plan to increase gradually to goal 500mg bid Ativan iv prn prolonged seizure or cluster Other medical workup and management and supportive care per primary Will follow clinically Consultation Date/Type/Reason Admit Date/Time Jul 09, 2018 at 21:27 Type of Consult Neurology Reason for Consultation LOC Requesting Provider: JOHN ROQUE Date/Time of Note DATE: 07/11/18 TIME: 09:56 24 HR Interval Summary Free Text/Dictation s/p EEG Exam Vital Signs Vitals Vital Signs Date Temp Pulse Resp B/P (MAP) Pulse Ox O2 O2 Flow FiO2 Time Delivery Rate 07/11/18 86 08:00 07/11/18 98.4 18 145/96 99 Room Air 07:31 (112) Intake and Output 07/10/18 07/10/18 07/11/18 1414:59 22:59 06:59 IntakeIntake Total 1300 ml OutputOutput Total 750 ml BalanceBalance 550 ml Exam Comprehensive completed; stable from prior DAISY ALBERTS Jul 11, 2018 09:59
[2018-07-11] MEDS ORDERED: LEVETIRACETAM 250 MG TAB PO SCH (10:00)
--- NOTE | 2018-07-11 10:38 | PDOCDIS ---
Discharge Instructions DIAGNOSIS Discharge Diagnosis Syncope, suspected seizure CONDITION [id number] Patient Condition: [id number] Good HOME CARE INSTRUCTIONS: [id number] Diet Instructions: [id number] Regular ACTIVITY: [id number] Activity Restrictions: [id number] No Restrictions FOLLOW UP/APPOINTMENTS Follow-up Plan 1. Take all medications as prescribed. 2. Take Keppra for suspected seizure 3. See Dr. Canales in neurology clinic in 2-4 weeks. ISACC KRISHNAMURTHY MD Jul 11, 2018 10:38
[2018-07-11] MEDS ORDERED: LEVE250T66 PO (11:02)
--- NOTE | 2018-07-11 16:39 | DS ---
Date/Time of Note Date/Time of Note DATE: 07/11/18 TIME: 16:36 Discharge Summary Admission/Discharge Info Admit Date/Time Jul 09, 2018 at 21:27 Discharge Date/Time Jul 11, 2018 at 11:31 Discharge Diagnosis Syncope, suspected seizure Patient Condition: Good Consults Dr. Canales, neurology Hx of Present Illness Chief complaint: Syncopal episode while sitting This is a 47-year-old [place]-speaking blind man, possibly with autism, who had a syncopal episode at home. Mother at bedside provided the history. She states that the patient was sitting at dinner and all of a sudden he started sweating and turned pale and his face turned blank and in a slightly slumped forward. After he was revived he became confused and he was diaphoretic and he was hypotensive and was transported via EMS to [facility]. Patient denied any nausea vomiting or diarrhea there is no chest pain or shortness of breath. Allergies: NKDA Medications: See [facility] Hospital Course Full neuro exam was done which was intact, aside from blindness. MRI was done negative for stroke. EEG was done without seizure activity. However, history was very concerning for seizure so he will be discharged on Keppra and follow up with Dr. Canales outpatient. Home Meds Active Scripts Levetiracetam* (Keppra*) 250 Mg Tab, 250 MG PO BID, #60 TAB Prov:ISACC KRISHNAMURTHY MD 07/11/18 Reported Medications Atorvastatin Calcium (Atorvastatin Calcium) 10 Mg Tablet, 10 MG PO QHS, #30 TAB 07/09/18 Amlodipine Besylate* (Norvasc*) 5 Mg Tablet, 5 MG PO DAILY, TAB 07/09/18 Losartan-Hydrochlorothiazide (Losartan-HCTZ) Unknown Strength Tab, PO DAILY, TAB 07/09/18 Discontinued Scripts Ondansetron Hcl* (Zofran* ODT) 8 mg -ODT Tab.disper, 8 MG PO Q6 PRN for NAUSEA AND/OR VOMITING, #8 TAB Prov:BARRY ORTIZ MD 10/25/15 Ibuprofen* (Motrin*) 600 Mg Tab, 600 MG PO Q6, #20 TAB Prov:BARRY ORTIZ MD 10/25/15 Hydrocodone Bit-Acetaminophen* ([place]*) 5-325 Mg Tab, 1 TAB PO Q6 PRN for PAIN, #15 TAB Prov:BARRY ORTIZ MD 10/25/15 Follow-up Plan 1. Take all medications as prescribed. 2. Take Keppra for suspected seizure 3. See Dr. Canales in neurology clinic in 2-4 weeks. Primary Care Provider Not On Staff Doctor Time spent on discharge: > 30 minutes Pending Labs Laboratory Tests Test 07/10/18 16:50 Creatine Kinase 55 IU/L (23-200) Creatine Kinase Index 0.4 Creatinine Kinase MB (Mass) < 0.22 ng/ml (0.0-2.4) Troponin I < 0.012 ng/ml (0.000-0.120) ISACC KRISHNAMURTHY MD Jul 11, 2018 16:39
== END 2018-07-11 11:31 | disposition home or self-care (01) | DRG 312 ==
LOC: E/R 19:06 → TEL 21:27
PROVIDERS: ADMIT Family Medicine; ATTEND Internal Medicine
DX: R55 Syncope and collapse (principal); F84.0 Autistic disorder; E78.5 Hyperlipidemia, unspecified; G40.909 Epilepsy, unspecified, not intractable, without status epilepticus; I10 Essential (primary) hypertension; R62.50 Unspecified lack of expected normal physiological development in childhood; H54.7 Unspecified visual loss
CPT/HCPCS: 36415; 70450; 70490; 71045; 80053; 80061; 80307; 81003; 82550; 82553; 83036; 83690; 83735; 84443; 84484; 85025; 93005; 93306; 93880; 95819; C9113; J7030